=== PATIENT | female | born 1975 | race Caucasian/White ===

== ENCOUNTER → 2017-03-17 | Outpatient (CLI) | payer OTHER | LOC: FIMAGING 09:50 | PROVIDERS: ATTEND Internal Medicine | DX: Z12.31 Encounter for screening mammogram for malignant neoplasm of breast (principal) ==

== ENCOUNTER → 2018-03-23 | Outpatient (CLI) | payer OTHER | LOC: FIMAGING 16:09 | PROVIDERS: ATTEND Internal Medicine | DX: Z12.31 Encounter for screening mammogram for malignant neoplasm of breast (principal) ==

== ENCOUNTER 2018-03-25 20:33 | Emergency (ER) | payer OTHER ==
--- NOTE | 2018-03-25 20:55 | EDPHY ---
HPI/HX/ROS/PE/MDM Narrative: CHIEF COMPLAINT: Possible seizure HPI: This patient is a 42 year old female arriving with her via EMS after a witnessed possible seizure. They were eating dinner at [employer] with friends. She hadn't eaten in about 8 hours and had two whiskey sours and a long wait for her food when she began to feel faint. She and her got up to leave the restaurant, and she collapsed to the floor. Her was able to catch her as she fell and she denies any trauma. She remained unconscious for about 15-30 seconds. During that time her rolled her onto her side. The patient vomited and was incontinent of urine. She had a rigid body but no shaking. When she woke, the patient initially thought she was driving a car and remained disoriented for about 15 seconds until realizing she was in a restaurant. She had been completely alert and oriented since. The patient notes that while in college in 1992, she had a grand mal seizure. She has not had any recurrent grand mal seizures following. Around 2000, she had an episode similar to today. She denies any personal or family history of heart problems. Her father and sisters have had similar "episodes" in the past with possible diagnoses of vasovagal syncope, no known epilepsy. No history of diabetes, hypertension, hyperlipidemia. She denies any recent trauma or illness. REVIEW OF SYSTEMS: A comprehensive 10 system review of systems is otherwise negative aside from elements mentioned in the history of present illness and medical decision making. PMH: Seizure in 1992. SOCIAL HISTORY: . at bedside. Employed. PHYSICAL EXAM: General:Patient is alert, in no acute distress. ENT:Eyes are normal to inspection. ENT inspection normal. Neck: Normal inspection. Full range of motion. Respiratory:No respiratory distress. Breath sounds normal bilaterally. Cardiovascular: Regular rate and rhythm. Strong peripheral pulses. Normal cap refill. Abdomen:The abdomen is nontender to palpation. There are no peritoneal signs. There are normal bowel sounds. Back: Normal to inspection. No tenderness to palpation. Skin: Normal color. No rash. Warm and dry. Extremities: Normal appearance. Full range of motion. Neuro: Oriented x3. Normal motor function. Normal sensory function. ED Course: 42 y/o female presents following a witnessed syncopal episode vs seizure this evening. Exam largely unremarkable, she is alert and oriented. She has had similar episodes in the past, as have several family members. History is more consistent with syncope than seizure given her 's report. Plan for EKG, labs including CBC, chemistries, BHCG, troponin. Discussed CT here in the ED vs. outpatient if warranted. The patient and her prefer to proceed with lab studies and follow up with her primary care provider or neurology unless laboratory studies suggest etiology other than syncope. EKG was ordered and interpreted by myself. Please see yetu system for official reading. Sinus rhythm. Reviewed laboratory studies. These are completely unremarkable. BHCG and troponin are negative. Reassessed patient. Discussed results. Plan for discharge home in good condition. Followup and return precautions discussed. Referral to neurology provided. The patient is comfortable with this plan. - Data Points Laboratory Results: Laboratory Results 03/25/18 20:45 03/25/18 20:45 03/25/18 03/25/18 03/25/18 21:13 20:45 20:45 WBC RBC Hgb Hct MCV MCH MCHC RDW Plt Count MPV Neut % (Auto) Lymph % (Auto) Roane % (Auto) Eos % (Auto) Baso % (Auto) Nucleat RBC Rel Count Absolute Neuts (auto) Absolute Lymphs (auto) Absolute Monos (auto) Absolute Eos (auto) Absolute Basos (auto) Absolute Nucleated RBC Immature Gran % Immature Gran # Sodium 139 mEq/L mEq/L (135-145) Potassium 3.4 mEq/L L mEq/L (3.5-5.2) Chloride 107 mEq/L mEq/L (97-110) Carbon Dioxide 22 mEq/l mEq/l (22-31) Anion Gap 10 mEq/L mEq/L (6-14) BUN 16 mg/dL mg/dL (7-23) Creatinine 0.8 mg/dL mg/dL (0.6-1.0) Estimated GFR > 60 Glucose 96 mg/dL mg/dL (70-100) Calcium 9.2 mg/dL mg/dL (8.5-10.4) POC Troponin I 0.00 ng/mL ng/mL (0.00-0.08) Beta HCG, Qual NEGATIVE 03/25/18 20:45 WBC 8.02 10^3/uL 10^3/uL (3.80-9.50) RBC 4.77 10^6/uL 10^6/uL (4.18-5.33) Hgb 13.8 g/dL g/dL (12.6-16.3) Hct 41.5 % % (38.0-47.0) MCV 87.0 fL fL (81.5-99.8) MCH 28.9 pg pg (27.9-34.1) MCHC 33.3 g/dL g/dL (32.4-36.7) RDW 12.6 % % (11.5-15.2) Plt Count 251 10^3/uL 10^3/uL (150-400) MPV 10.1 fL fL (8.7-11.7) Neut % (Auto) 63.2 % % (39.3-74.2) Lymph % (Auto) 26.3 % % (15.0-45.0) Roane % (Auto) 6.5 % % (4.5-13.0) Eos % (Auto) 2.9 % % (0.6-7.6) Baso % (Auto) 0.7 % % (0.3-1.7) Nucleat RBC Rel Count 0.0 % % (0.0-0.2) Absolute Neuts (auto) 5.07 10^3/uL 10^3/uL (1.70-6.50) Absolute Lymphs (auto) 2.11 10^3/uL 10^3/uL (1.00-3.00) Absolute Monos (auto) 0.52 10^3/uL 10^3/uL (0.30-0.80) Absolute Eos (auto) 0.23 10^3/uL 10^3/uL (0.03-0.40) Absolute Basos (auto) 0.06 10^3/uL 10^3/uL (0.02-0.10) Absolute Nucleated RBC 0.00 10^3/uL 10^3/uL (0-0.01) Immature Gran % 0.4 % % (0.0-1.1) Immature Gran # 0.03 10^3/uL 10^3/uL (0.00-0.10) Sodium Potassium Chloride Carbon Dioxide Anion Gap BUN Creatinine Estimated GFR Glucose Calcium POC Troponin I Beta HCG, Qual Medications Given: Discontinued Medications Sodium Chloride (Ns) 1,000 mls @ 0 mls/hr IV EDNOW ONE; Wide Open PRN Reason: Protocol Stop: 03/25/18 21:04 Last Admin: 03/25/18 21:05 Dose: 1,000 mls Point of Care Test Results: Chemistry 03/25/18 21:13 POC Troponin I 0.00 ng/mL ng/mL (0.00-0.08) General Time Seen by Provider: 03/25/18 20:44 Initial Vital Signs: Initial Vital Signs Temperature (C) 36.4 C 03/25/18 20:34 Heart Rate 83 03/25/18 20:34 Respiratory Rate 16 03/25/18 20:34 Blood Pressure 114/76 03/25/18 20:34 O2 Sat (%) 97 03/25/18 20:34 O2 Delivery Mode Room Air Allergies/Adverse Reactions: cefaclor [From Ceclor] Allergy (Verified 03/25/18 20:41) Swelling/neck,face,throat Home Medications: Medication Instructions Recorded NK [No Known Home Meds] 03/25/18 Departure - Departure Disposition: Home, Routine, Self-Care Clinical Impression: Vasovagal syncope Condition: Good Instructions: Syncope (ED) Additional Instructions: Follow up with your primary care provider. Follow up with neurology for further evaluation. We have provided a referral to our neurologist utilization coordinator. Stay well hydrated. Return to the emergency department for recurrent episodes tonight, or if you develop fever, chest pain, shortness of breath, severe headache, or other worsening of condition or further concerns. Referrals: Eileen Jaquez MD [Primary Care Provider] - As per Instructions Juanito Loo MD [Medical Doctor] - As per Instructions Report Scribed for: Onel Mar Report Scribed by: Trinidad Wiley Date of Report: 03/25/18 Time of Report: 20:56 Physician Review and Approval Statement: Portions of this note were transcribed by an ED scribe. I personally performed the history, physical exam, and medical decision making; and confirm the accuracy of the information in the transcribed note.
[2018-03-25] MEDS ORDERED: NS 1,000 ML IV ONE (21:03)
[2018-03-25 21:10] LABS: PLATELET COUNT 251 10^3/uL (150-400)
[2018-03-25 21:29] VITALS: BP 117/91
--- NOTE | 2018-03-25 22:34 | CPEKG ---
Test Reason : OPEN Blood Pressure : / mmHG Vent. Rate : 076 BPM Atrial Rate : 076 BPM P-R Int : 136 ms QRS Dur : 091 ms QT Int : 375 ms P-R-T Axes : 052 054 034 degrees QTc Int : 422 ms Sinus rhythm Confirmed by Onel Mar ([id number]) on 03/25/2018 10:33:44 PM Referred By: Onel Mar Confirmed By:Onel Mar
== END 2018-03-25 21:45 | disposition home or self-care (01) ==
DX: R55 Syncope and collapse (principal); E86.9 Volume depletion, unspecified
CPT/HCPCS: 84484-ER